=== PATIENT | female | born 1965 | race Caucasian/White ===

== ENCOUNTER 2017-07-22 07:53 | Outpatient (CLI) | payer OTHER ==
[~2017-07-22 07:53] MED LIST: DIOVAN HCT 320/1 TAB; LEVSIN/SL0.125 MG PO; METFORMIN HCL500 M2; PROTONIX40 MG PO; TOPROL XL50 MG
== END 2017-07-22 07:56 | disposition home or self-care (01) ==
LOC: SONOGRAMA 07:53
DX: E04.2 Nontoxic multinodular goiter (principal)

== ENCOUNTER 2018-01-13 09:40 | Outpatient (CLI) | payer OTHER | END 2018-01-13 09:43 | disposition home or self-care (01) | LOC: SONOGRAMA 09:40 | DX: E04.1 Nontoxic single thyroid nodule (principal) ==